=== PATIENT | male | born 1945 | race Caucasian/White ===

== ENCOUNTER 2016-12-17 09:08 | Observation (INO) | payer OTHER ==
[2016-12-17] MEDS ORDERED: Sodium Chloride 0.9% 1,000 ML IV ONE (09:49)
--- NOTE | 2016-12-17 09:49 | C.PDOC ---
History Of Present Illness 71 yr old male presents to the ER with complaints of LLQ abdominal pain for the past 1 week. States he took medication for constipation yesterday and now has diarrhea with multiple BM today. Patient denies fever, chills, nausea, vomiting , dysuria, incontinence, rectal bleeding, back pain, weakness or numbness. LLQ ABD PAIN X 1 WEEK. TOOK MEDS FOR CONSTIPATION YEST NOW W DIARRHEA MULT BM TODAY. NO FEVER, NV. PSH NEG. DENIES BRBPR EXAM MILD DIST NONTOXIC HEENT NEG ABD +LLQ TEND SOFT NO R/G REMAINDER NEG Time Seen by Provider: 12/17/16 09:43 Chief Complaint (Nursing): Abdominal Pain History Per: Patient History/Exam Limitations: no limitations Onset/Duration Of Symptoms: Days (1 week ) Past Medical History Reviewed: Historical Data, Nursing Documentation, Vital Signs Vital Signs: Last Vital Signs Temp 98.3 F 12/17/16 13:39 Pulse 57 L 12/17/16 13:39 Resp 16 12/17/16 13:39 BP 137/78 12/17/16 13:39 Pulse Ox 96 12/17/16 13:39 - Medical History PMH: CAD, HTN Surgical History: Hernia Repair - [facility] Procedures TETANUS TOXOID ADMINIST (01/18/14) Family History: States: Diabetes - Social History Hx Tobacco Use: No Hx Alcohol Use: Yes (Occasional Wine) Hx Substance Use: No - Immunization History Hx Tetanus Toxoid Vaccination: Yes Hx Influenza Vaccination: No Hx Pneumococcal Vaccination: No Review Of Systems Except As Marked, All Systems Reviewed And Found Negative. Constitutional: Negative for: Fever, Chills Gastrointestinal: Positive for: Abdominal Pain (LLQ), Diarrhea. Negative for: Nausea, Vomiting Genitourinary: Negative for: Dysuria, Incontinence Musculoskeletal: Negative for: Back Pain Neurological: Negative for: Weakness, Numbness Physical Exam - Physical Exam Appears: Non-toxic, In Acute Distress (Mild) Skin: Warm, Dry, No Rash Head: Atraumatic, Normacephalic Oral Mucosa: Moist Chest: Symmetrical, No Tenderness Cardiovascular: Rhythm Regular, No Murmur Respiratory: Normal Breath Sounds, No Rales, No Rhonchi, No Stridor, No Wheezing Gastrointestinal/Abdominal: Soft, Tenderness (LLQ ), No Guarding, No Rebound Extremity: Normal ROM, No Swelling Neurological/Psych: Oriented x3, Normal Speech, Normal Motor ED Course And Treatment - Laboratory Results Result Diagrams: 12/17/16 10:44 12/17/16 10:44 O2 Sat by Pulse Oximetry: 97 (RA) Pulse Ox Interpretation: Normal - CT Scan/US CT - Abd & Pelvis Other Rad Studies (CT/US): Read By Radiologist, Radiology Report Reviewed CT/US Interpretation: PROCEDURE: CT Abdomen and Pelvis with contrast. HISTORY : LLQ abd pain. COMPARISON: CT abdomen and pelvis with contrast performed 02/07. TECHNIQUE: Contrast dose: 100 mL Visipaque. Radiation dose: Total exam DLP = 677.16 mGy-cm. This CT exam was performed using one or more of the following dose reduction techniques: Automated exposure control, adjustment of the mA and/or kV according to patient size, and/or use of iterative reconstruction technique. FINDINGS: LOWER THORAX: No visible consolidation, pleural effusion, or pneumothorax. LIVER: 3 mm hepatic dome hypodensity, too small to characterize ; statistically likely cyst or hemangioma. Hypoattenuation of the liver compatible with hepatic steatosis. GALLBLADDER AND BILE DUCTS: Unremarkable. PANCREAS: Atrophy. SPLEEN: Unremarkable. ADRENALS: Unremarkable. KIDNEYS AND URETERS: The kidneys enhance symmetrically. No hydronephrosis or obstructing calculus identified. 14 mm left mid to lower pole renal hypodensities largest hypodensity measures approximately 18 HU, higher than expected for simple cyst. Additional too small to characterize bilateral renal hypodensities ; statistically likely cysts or hemangiomas. VASCULATURE: No aortic aneurysm. BOWEL: Stomach is nondistended. Lack of oral contrast limits evaluation for bowel pathology. Bowel loops appear within normal limits of caliber without evidence of obstruction. Inflammatory changes and wall thickening involving the left colon/ rectosigmoid colon consistent with acute diverticulitis. APPENDIX: The appendix appears within normal limits of caliber. No secondary signs of acute appendicitis. PERITONEUM: No significant free fluid. No definite free air. LYMPH NODES: No bulky adenopathy. BLADDER: Unremarkable. REPRODUCTIVE: Prostate gland measures approximately 3.9 x 4.9 cm and contains calcifications. BONES: Degenerative changes. OTHER FINDINGS: None. IMPRESSION: Inflammatory changes and wall thickening involving the left colon/ rectosigmoid colon consistent with acute diverticulitis. Enlarged prostate gland. Recommend correlation with PSA. Too small to characterize hepatic dome hypodensity ; statistically likely cyst or hemangioma. Hypoattenuation of the liver compatible with hepatic steatosis. 14 mm left mid to lower pole renal hypodensities largest hypodensity measures approximately 18 HU, higher than expected for simple cyst. Additional too small to characterize bilateral renal hypodensities ; statistically likely cysts or hemangiomas. Progress - Data Reviewed Data Reviewed: Lab, Diagnostic imaging, Old records Medical Decision Making Medical Decision Making: PLAN: * CT - Abd & Pelvis * CBC * BMP * Urinalysis * Zofran IVP * Bentyl IM * Sodium Chloride IV ED OBSERVATION Discharge: Yes Date of observation admission: 12/17/16 Time of observation admission: 09:45 - Observation admission statement Patient is being placed in observation because:: ABD PAIN - Goals of Observation Goals of observation are:: NEG ACUTE ABD - Progress Note Progress Note: 12/17/16 11:00 APPEARS COMFORTABLE NAD. PENDING CT 12/17/16 13:11 APPEARS COMFORTABLE UNCH PRIOR. NO S/S ACUTE ABD. AGREES W DC HOME Disposition Counseled Patient/Family Regarding: Studies Performed, Diagnosis, Need For Followup, Rx Given - Disposition Disposition: HOME/ ROUTINE Disposition Time: 13:26 Condition: IMPROVED - Clinical Impression Clinical Impression: Diverticulitis - Scribe Statement The provider has reviewed the documentation as recorded by the Audra Stephen Provider Attestation: All medical record entries made by the Audra were at my direction and personally dictated by me. I have reviewed the chart and agree that the record accurately reflects my personal performance of the history, physical exam, medical decision making, and the department course for this patient. I have also personally directed, reviewed, and agree with the discharge instructions and disposition.
[2016-12-17] MEDS ORDERED: Sodium Chloride 0.9% 1,000 ML ONE (10:25)
[2016-12-17 10:49] LABS: BASO # 0.1 K/uL (0.0-0.2); BASO % 0.7 % (0.0-2.0); EOS # 0.2 K/uL (0.0-0.7); HEMATOCRIT 44.5 % (35.0-51.0); LYMPH # 2.1 K/uL (1.0-4.3); LYMPH % 21.9 % (20.0-40.0); MEAN CELL VOLUME 95.7 fL (80.0-94.0); MEAN CORPUSCULAR HEMOGLOBIN 32.2 pg (27.0-31.0); MEAN CORPUSCULAR HGB CONC 33.7 g/dL (33.0-37.0); MEAN PLATELET VOLUME 8.8 fL (7.2-11.7); MONO # 1.1 K/uL (0.0-0.8); MONO % 11.9 % (0.0-10.0); RED CELL DISTRIBUTION WIDTH 12.9 % (11.5-14.5); WHITE BLOOD COUNT 9.5 K/uL (4.8-10.8)
[2016-12-17 10:54] LABS: RBC URINE < 1 /hpf (0-3); URINE BILIRUBIN NEGATIVE (NEGATIVE); URINE BLOOD NEGATIVE (NEGATIVE); URINE COLOR Yellow (YELLOW); URINE GLUCOSE (UA) NORMAL (Normal); URINE KETONE NEGATIVE (NEGATIVE); URINE LEUKOCYTE ESTERASE NEG Leu/uL (Negative); URINE PROTEIN NEGATIVE (NEGATIVE); URINE UROBILINOGEN NORMAL mg/dL (0.2-1.0); WBC URINE 1 /hpf (0-5)
[2016-12-17 11:05] LABS: CHLORIDE 99 mmol/L (98-107); SODIUM 139 mmol/L (132-148)
[2016-12-17 11:06] LABS: POTASSIUM 4.3 mmol/L (3.6-5.2)
[2016-12-17 11:08] LABS: GFR AFRICAN-AMERICAN > 60
[2016-12-17 11:09] LABS: BLOOD UREA NITROGEN 15 mg/dL (9-20); CALCIUM 9.1 mg/dl (8.6-10.4); CARBON DIOXIDE 24 mmol/L (22-30); GLUCOSE,RANDOM 101 mg/dL (75-110)
[2016-12-17] MEDS ORDERED: Iodixanol 320 mg/ml 150 ml Bottle IV ONE (12:07)
--- NOTE | 2016-12-17 13:07 | CT ---
PROCEDURE: CT Abdomen and Pelvis with contrast HISTORY: LLQ abd pain COMPARISON: CT abdomen and pelvis with contrast performed 11/01/162013 TECHNIQUE: Contrast dose: 100 mL Visipaque Radiation dose: Total exam DLP = 677.16 mGy-cm. This CT exam was performed using one or more of the following dose reduction techniques: Automated exposure control, adjustment of the mA and/or kV according to patient size, and/or use of iterative reconstruction technique. FINDINGS: LOWER THORAX: No visible consolidation, pleural effusion, or pneumothorax. LIVER: 3 mm hepatic dome hypodensity, too small to characterize ; statistically likely cyst or hemangioma. Hypoattenuation of the liver compatible with hepatic steatosis. GALLBLADDER AND BILE DUCTS: Unremarkable. PANCREAS: Atrophy. SPLEEN: Unremarkable. ADRENALS: Unremarkable. KIDNEYS AND URETERS: The kidneys enhance symmetrically. No hydronephrosis or obstructing calculus identified. 14 mm left mid to lower pole renal hypodensities largest hypodensity measures approximately 18 HU, higher than expected for simple cyst. Additional too small to characterize bilateral renal hypodensities ; statistically likely cysts or hemangiomas. VASCULATURE: No aortic aneurysm. BOWEL: Stomach is nondistended. Lack of oral contrast limits evaluation for bowel pathology. Bowel loops appear within normal limits of caliber without evidence of obstruction. Inflammatory changes and wall thickening involving the left colon/ rectosigmoid colon consistent with acute diverticulitis. APPENDIX: The appendix appears within normal limits of caliber. No secondary signs of acute appendicitis. PERITONEUM: No significant free fluid. No definite free air. LYMPH NODES: No bulky adenopathy. BLADDER: Unremarkable. REPRODUCTIVE: Prostate gland measures approximately 3.9 x 4.9 cm and contains calcifications. BONES: Degenerative changes. OTHER FINDINGS: None. IMPRESSION: Inflammatory changes and wall thickening involving the left colon/ rectosigmoid colon consistent with acute diverticulitis. Enlarged prostate gland. Recommend correlation with PSA. Too small to characterize hepatic dome hypodensity ; statistically likely cyst or hemangioma. Hypoattenuation of the liver compatible with hepatic steatosis. 14 mm left mid to lower pole renal hypodensities largest hypodensity measures approximately 18 HU, higher than expected for simple cyst. Additional too small to characterize bilateral renal hypodensities ; statistically likely cysts or hemangiomas.
[2016-12-17 13:40] VITALS: BP 137/78; PULSE 57; RESP 16; TEMP 98.3
[2016-12-18 08:32] VITALS: O2SAT 97
== END 2016-12-17 13:26 | disposition home or self-care (01) ==
LOC: C.ER 09:08 → C.9OBSV 09:45
PROVIDERS: ADMIT Emergency Medicine; ATTEND Emergency Medicine
DX: K57.92 Diverticulitis of intestine, part unspecified, without perforation or abscess without bleeding (principal); K59.00 Constipation, unspecified; I10 Essential (primary) hypertension; E11.9 Type 2 diabetes mellitus without complications; I25.10 Atherosclerotic heart disease of native coronary artery without angina pectoris
CPT/HCPCS: 36415; 74177; 80048; 81001; 85025; 96372; 96374; G0378; J0500; J2405; J7040; Q9967

== ENCOUNTER 2016-12-26 11:18 | Emergency (ER) | payer OTHER ==
[2016-12-26 11:23] VITALS: BP 160/81; PULSE 61; RESP 18; TEMP 97.6; O2SAT 98
--- NOTE | 2016-12-26 11:39 | C.PDOC ---
History Of Present Illness 71 y/o male c/o a swelling to the left elbow for 2 weeks. Patient fell on his elbow a few weeks prior. Reports no pain with ROM, but noticed a increase in size which prompted the visit. Denies pain, fever, chills. Time Seen by Provider: 12/26/16 11:32 Chief Complaint (Nursing): Upper Extremity Problem/Injury History Per: Patient History/Exam Limitations: no limitations Onset/Duration Of Symptoms: Days (2 weeks) Current Symptoms Are (Timing): Still Present Severity: Mild Recent travel outside of the [place]: No Additional History Per: Patient Past Medical History Reviewed: Historical Data, Nursing Documentation, Vital Signs Vital Signs: Last Vital Signs Temp 97.6 F 12/26/16 11:23 Pulse 61 12/26/16 11:23 Resp 18 12/26/16 11:23 BP 160/81 H 12/26/16 11:23 Pulse Ox 98 12/26/16 11:49 - Medical History PMH: CAD, HTN Surgical History: Hernia Repair - [facility] Procedures TETANUS TOXOID ADMINIST (01/18/14) Family History: States: Diabetes - Social History Hx Tobacco Use: No Hx Alcohol Use: Yes (Occasional Wine) Hx Substance Use: No - Immunization History Hx Tetanus Toxoid Vaccination: No Hx Influenza Vaccination: No Hx Pneumococcal Vaccination: No Review Of Systems Constitutional: Negative for: Fever, Chills Musculoskeletal: Negative for: Arm Pain (Elbow pain) Skin: Positive for: Other (Swelling to the left elbow) Physical Exam - Physical Exam Appears: Non-toxic, No Acute Distress Skin: Warm, Dry Extremity: Normal ROM (No pain with motion), Capillary Refill (<2secs), Swelling (Large effusion to the left elbow) Pulses: Left Radial: Normal, Right Radial: Normal Neurological/Psych: Oriented x3 ED Course And Treatment O2 Sat by Pulse Oximetry: 98 (RA) Pulse Ox Interpretation: Normal Medical Decision Making Medical Decision Making: Impression: * Left elbow swelling for 2 weeks. Patient is in no acute distress and is improving with the elbow swelling. Pain currently denies any pain and was advised to follow up with his PMD for further evaluation and to return if symptoms worsens. Disposition Counseled Patient/Family Regarding: Diagnosis, Need For Followup - Disposition Disposition: HOME/ ROUTINE Disposition Time: 11:37 Condition: STABLE Instructions: RICE Therapy (ED) Forms: Gen Discharge Inst Swedish - POA Present On Arrival: None - Clinical Impression Clinical Impression: Effusion of elbow joint, left - Scribe Statement The provider has reviewed the documentation as recorded by the Scribe Walt sung All medical record entries made by the Scribe were at my direction and personally dictated by me. I have reviewed the chart and agree that the record accurately reflects my personal performance of the history, physical exam, medical decision making, and the department course for this patient. I have also personally directed, reviewed, and agree with the discharge instructions and disposition.
== END 2016-12-26 11:44 | disposition home or self-care (01) ==
LOC: C.ER 11:18
DX: M25.422 Effusion, left elbow (principal)